=== PATIENT | female | born 1975 | race Caucasian/White ===

== ENCOUNTER 2019-11-06 09:29 | Emergency (ER) | payer OTHER, SELFPAY ==
[2019-11-06] VITALS (28 sets, daily range): BP systolic 104–146; BP diastolic 67–84; PULSE 56–61; RESP 16–18; TEMP 36.5; O2SAT 100; BMI 21.6
--- NOTE | 2019-11-06 10:18 | ED_ITS ---
Entered by Zahira King, acting as scribe for Nov 06, 2019 09:29 HPI - Abdominal Pain General: Chief Complaint: Abdominal Pain Stated Complaint: ABD Pain Time Seen by Provider: 11/06/19 10:28 Source: patient and family Mode of arrival: ambulatory Limitations: no limitations History of Present Illness: HPI narrative: 44 yo female presents with abdomen pain in LLQ. pt states this started this morning while sitting at work. Pt states she has had nausea. pt states the pain radiates to her L flank. pt has a HX of cysts. Pt states nothing relieves the pain and movement makes this worse. pt denies any other symptoms at this time. MD elicited complaint: abdominal pain (L sided) Pertinent past history: other (ovarian cyst) Onset (ago): hour(s) (today) Location: LLQ Severity: mild Quality: sharp Radiation: L flank Exacerbating factors: movement Relieving factors: nothing Associated Symptoms: Reports GI cramping; Denies chills, coffee ground emesis, constipation, diarrhea, dysuria, fever(s), heartburn, hematochezia, hematuria, hematemesis, melena and syncope Review of Systems Const: Denies: fever, chills, body aches, fatigue, malaise or night sweats Eyes: Denies: change in vision or blurry vision ENMT: Denies: throat pain, oral sores/lesions, dental pain, nasal discharge or nasal congestion Card: Denies: chest pain, palpitations, irregular heart rhythm, edema, syncope, shortness of breath on exertion, shortness of breath when lying down or leg pain with exertion Resp: Denies: shortness of breath, productive cough, non-productive cough or wheezing GI: Reports: cramping; Denies: vomiting blood, coffee grounds in vomit, difficulty swallowing, heartburn/indigestion, diarrhea, constipation, blood in stool or black tarry stool : Reports: flank pain; Denies: painful urination, urinary frequency, urinary urgency, urinary incontinence or blood in urine Musc: Denies: neck pain, back pain, extremity pain, extremity swelling, joint pain or joint swelling Skin/Breast: Denies: rash, itching or redness Neuro: Denies: headache, numbness in extremities, weakness in extremities, changes in sensation, lack of coordination, difficulty walking, frequent falls, dizziness, vertigo or confusion Psych: Denies: anxiety, depression, loss of interest, visual hallucinations, auditory hallucinations, suicidal ideation or homicidal ideation Endo: Denies: excessive urination, excessive thirst, tired all the time or cold intolerance Domenic/Lymph: Denies: easy bruising, easy bleeding, petechiae, enlarged lymph nodes or tender lymph nodes PFSH ED PFSH: Statuses (acute, chronic, etc) shown below reflect problem list status as previously entered and may not be historically accurate Medical History History of chronic hypertension (Acute) History of colitis (Acute) History of migraine (Acute) Surgical History History of colonoscopy (Acute) History of hysterectomy (Acute) Social History Smoking and tobacco status: never smoked Physical Exam Const: COMMON NORMALS: average body habitus, oriented x3 and alert GENERAL APPEARANCE: cooperative, comfortable, well kempt and well developed NUTRITIONAL APPEARANCE: obese ORIENTATION/CONSCIOUSNESS: Yes awake, Yes oriented to person and Yes oriented to place HENMT: COMMON NORMALS: normocephalic, head/scalp atraumatic, EAC's normal, TM's normal bilaterally, external nose normal, moist oral mucous membranes and oropharynx normal HEAD & SCALP: normocephalic and atraumatic NOSE: external nose normal EXTERNAL AUDITORY CANAL: EAC's normal TYMPANIC MEMBRANE: TM's normal bilaterally MOUTH: oral and palatal mucosa normal, lip normal and tongue normal THROAT: posterior oropharynx normal and tonsils normal Eye: COMMON NORMALS: PERRL, EOMs intact bilaterally, conjunctivae normal and no scleral icterus CONJUNCTIVA: Yes conjunctivae normal PUPIL: Yes PERRL Neck/C-Spine: COMMON NORMALS: full ROM, no lymphadenopathy, supple, no meningeal signs and thyroid normal THYROID: thyroid normal and asymmetrical Lymph: LYMPHATIC: no lymphadenopathy noted Resp: COMMON NORMALS: normal respiratory effort, no retractions, no use of accessory muscles and clear to auscultation bilaterally AUSCULTATION: clear to auscultation bilaterally Cardio: COMMON NORMALS: regular rate and regular rhythm RATE: regular rate RHYTHM: regular rhythm HEART SOUNDS: no murmurs GI: COMMON NORMALS: soft to palpation and no hepatosplenomegaly PALPATION: Yes soft and Yes no hepatosplenomegaly : COMMON NORMALS: Yes no CVA tenderness BLADDER/KIDNEY EXAM: Yes no CVA tenderness Back/Pelvis: COMMON NORMALS: no CVA tenderness LUMBAR SPINE/LOWER BACK: Yes normal to inspection Extremity: COMMON NORMALS: no clubbing, cyanosis or edema, no calf tenderness and no pedal edema Neuro: COMMON NORMALS: oriented x3 SENSORIUM/ORIENTATION: Yes alert, Yes oriented to person and Yes oriented to place MENINGEAL SIGNS: Yes no meningeal signs Psych: APPEARANCE: Yes well kempt Skin: COMMON NORMALS: no rashes or lesions noted and skin turgor normal GENERAL SKIN EXAM: no rashes or lesions noted and turgor normal Course ED course: Symptoms resolved at this point. We will discharge her home with hydrocodone and diclofenac if persists can use those if worsens return her exam once work-up is completed was totally benign. Have her follow-up with her primary care doctor she should get a repeat ultrasound in a few weeks. I suspect she may have had a little bit of fluid from the cyst on the ovary leak out there is not enough to see on the ultrasound I think there may have been a small leak which probably precipitated some of her pain and now it is completely resolved. Vital Signs: Vital signs: Vital Signs Temperature 97.7 F 11/06/19 09:31 Pulse Rate 61 11/06/19 13:53 Respiratory Rate 16 11/06/19 13:53 Blood Pressure 104/69 11/06/19 13:53 Pulse Oximetry 100 11/06/19 13:53 MDM - Abdominal Pain Lab Data: Labs: Lab Results 11/06/19 11/06/19 11/06/19 Range/Units 09:51 11:07 11:07 WBC 9.4 (4.0-10.0) 10^3/ uL RBC 4.77 (4.1-5.3) 10^6/u L Hgb 14.3 (11.5-15.3) g/dL Hct 43.1 (37.0-47.0) % MCV 90.4 (81-99) fL MCH 30.0 (28.0-34.0) pg MCHC 33.2 (30.0-36.0) g/dL RDW 12.0 L (12.1-15.1) % Plt Count 314 (130-400) 10^3/c mm MPV 10.2 (7.4-10.4) fL Neut % (Auto) 68.7 % Lymph % (Auto) 25.0 % [place] % (Auto) 4.9 % Eos % (Auto) 0.7 % Baso % (Auto) 0.5 % Neut # (Auto) 6.4 (1.8-7.7) 10^3/u L Lymph # (Auto) 2.3 (0.8-4.8) 10^3/u L [place] # (Auto) 0.5 (0.2-0.9) 10^3/u L Eos # (Auto) 0.1 (0.0-0.8) 10^3/u L Baso # (Auto) 0.1 (0.0-0.1) 10^3/u L Nucleated RBC % (a uto) 0 % Nucleated RBCs # 0.0 /100WBC Sodium 136 (136-145) mmol/L Potassium 4.2 (3.5-5.1) mmol/L Chloride 102 (98-107) mmol/L Carbon Dioxide 22 (22-29) mmol/L Anion Gap 16.2 (5-19) BUN 10 (6-20) mg/dL Creatinine 0.8 (0.5-0.9) mg/dL GFR Calculation 78.3 L (90-130) mL/min Glucose 103 (74-109) mg/dL Calcium 9.9 (8.6-10.0) mg/Dl Total Bilirubin 0.3 (0.15-1.2) mg/dL AST 21 (0-32) U/L ALT 19 (0-33) U/L Alkaline Phosphata se 58 (35-105) IU/L Total Protein 7.9 (6.6-8.7) g/dL Albumin 4.8 (3.5-5.2) g/dL Globulin 3.1 (1.3-4.6) g/dL Urine Color Yellow (Yellow) Urine Appearance Sl hazy (CLEAR) Urine pH 7 (5-7) Ur Specific Gravit y 1.000 L (1.005-1.030) Urine Protein Neg (Negative) Urine Glucose (UA) Norm (Normal) Urine Ketones Negative (Negative) Urine Occult Blood Neg (Negative) Urine Nitrate Negative (Negative) Urine Bilirubin Neg (NEGATIVE) Urine Urobilinogen Norm (Negative) mg/dL Ur Leukocyte Jonelle ase Negative (Negative) Urine RBC Rare (0-2) /hpf Urine WBC 0-4 H (0-5) /hpf Ur Squamous Epith Cells 5-10 H (0-5) Urine Bacteria 1+ H (NONE) Imaging Data ^: US: Radiologist's impression: [address] [address] Ultrasound Report Signed Patient: Tatyana Bynum #: [id number] : 1975Acct#:[id number] Age/Sex: 44 / FADM Date: 11/06/19 Loc: ERRoom/Bed: Attending Dr: Ordering Provider/Ordering MD: Tyler Lynn DO Date of Service: 11/06/19 Procedure(s): US pelvic complete* 61524 Accession Number(s): [id number] Report Number: [id number] WS: [id number] Pelvic ultrasound, 11/06/2019 Clinical Data: pain Comparison: None. Findings: The uterus is absent. The left ovary measures 1.56 cm x 1.57 cm x 1.79 cm with no cysts or masses. The right ovary measures 1.78 cm x 1.99 cm x 3.56 cm with a small simple cyst measuring 0.96 x 1.05 x 1.12 cm. There is no fluid in the cul-de-sac. US/US pelvic complete* 13693 Impression: 1. Hysterectomy. 2. Small right ovarian cyst. Dictated By:Geovanna Mueller MD Signed By:Geovanna Mueller MDSigned Date/Time:11/06/19 1302 DD/ 1258 Discharge Plan Discharge Patient Disposition: Home, Self-Care Clinical Impression: Ovarian cyst Qualifiers: Laterality: right Qualified Code(s): N83.201 - Unspecified ovarian cyst, right side Condition: Stable Prescriptions: New hydrocodone-acetaminophen 5-325 mg tablet 1 tab PO Q6H PRN (Reason: pain) Qty: 14 RF: 0 diclofenac sodium 75 mg tablet,delayed release (DR/EC) 75 mg PO BID PRN (Reason: pain) Qty: 30 RF: 0 No Action Multiple Vitamins Tablet 1 tab PO DAILY RF: 0 Vitamin C 1,000 mg Tablet 1,000 mg PO EVERY OTHER DAY RF: 0 sumatriptan succinate 100 mg tablet 100 mg PO PRN RF: 0 sertraline 100 mg tablet 100 mg PO DAILY RF: 0 propranolol 40 mg tablet 40 mg PO DAILY RF: 0 topiramate 50 mg tablet 50 mg PO BID RF: 0 hydrochlorothiazide 12.5 mg tablet 12.5 mg PO DAILY RF: 0 Fish Oil 1,000 mg (120 mg-180 mg) Capsule 1 cap PO DAILY RF: 0 potassium chloride 20 mEq tablet extended release 20 meq PO BID RF: 0 Discharge Orders: Discharge Order (Routine); Ordered 11/06/19 Ordered By: Tyler Lynn Referrals: Kim Berumen DO [Family Provider] - Geoffrey Gonzalez FNP [Primary Care Provider] - Discharge Diet: Usual diet Discharge Activity: Increase activity as tolerated Discharge Date/Time: 11/06/19 13:54 Coding Level of Care Code ED Grain Shoveler for Chg Fwd Exam Problem Focused The documentation recorded by the Fernando pierce Bridget Annette, accurately reflects the service I personally performed and the decisions made by Shane pagan Curtis L, DO Nov 06, 2019 09:29
[2019-11-06 10:26] LABS: Add Urine Microscopic? YES; Bilirubin Urine Neg (NEGATIVE); Blood Urine Neg (Negative); Glucose Urine UA Norm (Normal); Ketones Urine Negative (Negative); Leukocyte Esterase Urine Negative (Negative); Nitrate Urine Negative (Negative); Protein Urine Neg (Negative); Urine Appearance SL Hazy (CLEAR); Urine Color Yellow (Yellow); Urobilinogen Urine Norm (Negative); pH Urine 7 (5-7)
[2019-11-06 10:27] LABS: Bacteria Urine 1+; RBC Urine RARE /hpf (0-2); WBC Urine 0-4 /hpf (0-5)
[2019-11-06 10:28] LABS: Add Urine Culture? No
--- NOTE | 2019-11-06 10:58 | US_ITS ---
WS: [id number] Pelvic ultrasound, 11/06/2019 Clinical Data: pain Comparison: None. Findings: The uterus is absent. The left ovary measures 1.56 cm x 1.57 cm x 1.79 cm with no cysts or masses. The right ovary measures 1.78 cm x 1.99 cm x 3.56 cm with a small simple cyst measuring 0.96 x 1.05 x 1.12 cm. There is no fluid in the cul-de-sac. US/US pelvic complete* 80830 Impression: 1. Hysterectomy. 2. Small right ovarian cyst.
[2019-11-06] MEDS: sodium chloride 0.9% 1,000 ML 999 ML IV (11:10)
[2019-11-06 11:14] LABS: Basophils # 0.1 10^3/uL (0.0-0.1); Basophils % 0.5 %; Eosinophils # 0.1 10^3/uL (0.0-0.8); Eosinophils % 0.7 %; Hematocrit 43.1 % (37.0-47.0); Hemoglobin 14.3 g/dL (11.5-15.3); Lymphocytes # 2.3 10^3/uL (0.8-4.8); Mean Corpuscular HGB Conc 33.2 g/dL (30.0-36.0); Mean Corpuscular Volume 90.4 fL (81-99); Mean Platelet Volume 10.2 fL (7.4-10.4); Monocytes # 0.5 10^3/uL (0.2-0.9); Monocytes % 4.9 %; Neutrophils # 6.4 10^3/uL (1.8-7.7); Neutrophils % 68.7 %; Nucleated Red Blood Cells % 0 %; Platelet Count 314 10^3/cmm (130-400); Red Blood Count 4.77 10^6/uL (4.1-5.3); White Blood Count 9.4 10^3/uL (4.0-10.0)
[2019-11-06 11:35] LABS: Alanine Aminotransferase 19 U/L (0-33); Albumin Level 4.8 g/dL (3.5-5.2); Alkaline Phosphatase 58 IU/L (35-105); Anion Gap 16.2 (5-19); Aspartate Amino Transferase 21 U/L (0-32); Blood Urea Nitrogen 10 mg/dL (6-20); Calcium 9.9 mg/Dl (8.6-10.0); Carbon Dioxide 22 mmol/L (22-29); Chloride 102 mmol/L (98-107); Globulin 3.1 g/dL (1.3-4.6); Glomerular Filtration Rate 78.3 mL/min (90-130); Glucose 103 mg/dL (74-109); Potassium 4.2 mmol/L (3.5-5.1); Sodium 136 mmol/L (136-145); Total Bilirubin 0.3 mg/dL (0.15-1.2); Total Protein 7.9 g/dL (6.6-8.7)
--- NOTE | 2019-11-06 11:58 | PC.NURSE ---
US at bedside 1100
== END 2019-11-06 13:54 | disposition home or self-care (01) ==
PROVIDERS: Emergency Provider Family Medicine; Family Provider Family Medicine; PCP Registered Nurse
DX: N83.201 Unspecified ovarian cyst, right side (principal); I10 Essential (primary) hypertension
CPT/HCPCS: 36415; 76856; 80053; 81003; 85025; 96360; 99283; A9270; J7030

== ENCOUNTER → 2020-04-17 09:26 | Outpatient (BNVA) | payer OTHER, SELFPAY | PROVIDERS: Family Provider Family Medicine; PCP Registered Nurse; Visit Provider Family Medicine | DX: Z86.79 Personal history of other diseases of the circulatory system (principal) | CPT/HCPCS: 80053; 82044 ==

== ENCOUNTER → 2020-04-23 13:55 | Outpatient (BNVA) | payer OTHER, SELFPAY | PROVIDERS: Family Provider Family Medicine; PCP Registered Nurse; Visit Provider Family Medicine | DX: R73.09 Other abnormal glucose (principal) | CPT/HCPCS: 83036 ==

== ENCOUNTER 2020-05-28 10:15 | Outpatient (CLI) | payer OTHER, SELFPAY ==
--- NOTE | 2020-05-28 10:15 | US_ITS ---
WS: [id number] TRANSABDOMINAL PELVIC AND TRANSVAGINAL PELVIC ULTRASOUND HISTORY: LEFT lower quadrant pain. COMPARISON: 11/06/2019 Prior hysterectomy. No midline mass. Right ovary: 2.6 cm x 2.1 cm x 1.4 cm. Small follicles in the RIGHT ovary. Small corpus luteum cyst i n the RIGHT ovary. No solid or cystic mass. Normal vascularity. Left ovary: 2.2 cm x 1.8 cm x 1.7 cm. Small follicles in the LEFT ovary. No solid or cystic masses. N ormal vascularity. No free fluid. US/US pelvic with transvaginal IMPRESSION: 1. No solid or cystic masses within either ovary. 2. Prior hysterectomy.
== END 2020-05-28 10:16 | disposition home or self-care (01) ==
PROVIDERS: PCP Registered Nurse; Visit Provider Family Medicine
DX: R10.32 Left lower quadrant pain (principal)
CPT/HCPCS: 76830; 76856

== ENCOUNTER 2020-05-31 08:12 | Outpatient (CLI) | payer OTHER, SELFPAY ==
--- NOTE | 2020-05-31 08:30 | MM_ITS ---
WS: [id number] BILATERAL DIGITAL SCREENING MAMMOGRAM WITH CAD CLINICAL INFORMATION: screening mammogram HISTORY: Screening mammogram. No current complaints. COMPARISON: TECHNIQUE: Bilateral CC and MLO. FINDINGS: The breast are composed of extremely dense tissue, which can limit the detection of small underlying mass lesions. No suspicious focal mass, asymmetry, calcifications, or architectural distortion. No ev idence of malignancy. A few punctate calcifications. MM/[place] [id number] IMPRESSION: BI-RADS: 2-Benign FOLLOW UP: 1 Year Follow-up Recommend return to annual screening mammography.
== END 2020-05-31 08:13 | disposition home or self-care (01) ==
LOC: RADSHAW 08:15
PROVIDERS: PCP Family Medicine; Visit Provider Family Medicine
DX: Z12.31 Encounter for screening mammogram for malignant neoplasm of breast (principal)
CPT/HCPCS: 77067

== ENCOUNTER → 2020-08-21 12:23 | Outpatient (BNVA) | payer OTHER, SELFPAY | PROVIDERS: PCP Family Medicine; Visit Provider Nurse Practitioner Family | DX: Z11.59 Encounter for screening for other viral diseases (principal); Z20.828 Contact with and (suspected) exposure to other viral communicable diseases; J06.9 Acute upper respiratory infection, unspecified | CPT/HCPCS: 87635 ==

== ENCOUNTER 2020-11-15 11:04 | Emergency (ER) | payer OTHER, SELFPAY ==
[2020-11-15 11:15] VITALS: BP 159/95; PULSE 60; RESP 16; TEMP 37.1; O2SAT 100; BMI 21.8
--- NOTE | 2020-11-15 11:18 | W.ED.CHESTPA ---
HPI - Chest Pain General: Chief Complaint: Chest Pain Stated Complaint: WORSENING CP, ABNORMAL EKG Time Seen by Provider: 11/15/20 11:15 History of Present Illness: HPI narrative: 45-year-old female presents emergency room with complaint of chest pain. She had similar episode a week ago with episode of chest pain she was seen in the emergency room had normal troponins and EKGs and ultimately was sent home. She said there is some nonspecific ST abnormalities on the EKG but they did not hospitalize her. She is never previously had a heart condition of any kind. She does not smoke she does have a history of hypertension. She currently is on propranolol and hydrochlorothiazide. Few months ago she was started on Aimovig for migraines. She has not noticed any precipitating or relieving events. Pain is epigastric radiating up into the lower sternal area and a little bit to the left it does not have any radiation to the neck or arm no associated diaphoresis or shortness of breath. MD complaint: chest pain Onset (ago): week(s) Timing of current episode: episodic Prior episodes: Yes Onset: during rest and after eating Pain location: substernal and left chest Pain radiation: none Severity: moderate Quality: tightness and aching Relieving factors: nothing Exacerbating factors: nothing Associated symptoms: Reports sense of impending doom; Deny abdominal pain, diaphoresis, dyspnea, fever(s), leg edema, nausea, palpitations, syncope or vomiting Treatment prior to arrival: none Review of Systems Const: Denies: fever(s) or diaphoresis ENMT: Denies: throat pain, ear or mastoid pain, nasal discharge or nasal congestion Card: Denies: palpitations or syncope Resp: Denies: dyspnea GI: Denies: abdominal pain, nausea or vomiting : Denies: flank pain, difficulty voiding, dysuria, urinary frequency or urinary urgency Skin/Breast: Denies: rash or pruritus PFSH ED PFSH: Medical History JOEY (generalized anxiety disorder) History of chronic hypertension History of colitis History of migraine Surgical History History of colonoscopy History of hysterectomy Family History Other Cancer Hyperlipidemia Social History Smoking and tobacco status: never smoked Physical Exam Const: COMMON NORMALS: no acute distress GENERAL APPEARANCE: cooperative and comfortable ORIENTATION/CONSCIOUSNESS: Yes awake, Yes oriented to person, Yes oriented to place and Yes oriented to time HENMT: COMMON NORMALS: normocephalic, atraumatic and hearing grossly normal bilaterally HEAD & SCALP: normocephalic and atraumatic Neck/C-Spine: COMMON NORMALS: no JVD Resp: COMMON NORMALS: normal respiratory effort, No retractions, No use of accessory muscles and clear to auscultation bilaterally AUSCULTATION: clear to auscultation bilaterally Cardio: COMMON NORMALS: no JVD, regular rate, regular rhythm and No murmurs present (Cardio) RATE: regular rate RHYTHM: regular rhythm GI: COMMON NORMALS: Soft to palpation and No hepatosplenomegaly present AUSCULTATION: Yes normoactive bowel sounds PALPATION: Yes Soft to palpation, No Tenderness to palpation present (GI), No Guarding due to palpation present (GI) and Yes No hepatosplenomegaly present Extremity: COMMON NORMALS: normal to inspection, capillary refill normal, no clubbing, cyanosis or edema, no calf tenderness and no pedal edema Neuro: SENSORIUM/ORIENTATION: Yes oriented to person, Yes oriented to place and Yes oriented to time Skin: COMMON NORMALS: no rashes or lesions noted GENERAL SKIN EXAM: no rashes or lesions noted Course Vital Signs: Vital signs: Vital Signs Temperature 98.8 F 11/15/20 11:15 Pulse Rate 66 11/15/20 15:11 Respiratory Rate 16 11/15/20 15:11 Blood Pressure 111/70 11/15/20 15:11 Pulse Oximetry 99 11/15/20 15:11 MDM - Chest Pain MDM Narrative: Medical decision making narrative: Chest pain is resolved. Interestingly it is brought on specifically she states by eating with palpation I cannot reproduce it. Her EKG and her troponins are normal we even did to troponin despite the fact she started have this pain for over a week. We will go ahead and discharge her home we will make arrangements for an outpatient sestamibi stress test started on a PPI return if has further problems reviewed findings with her. Lab Data: Labs: Lab Results 11/15/20 11/15/20 11/15/20 Range/Units 12:00 12:00 12:00 WBC 7.0 (4.0-10.0) 10^3/ uL RBC 4.66 (4.1-5.3) 10^6/u L Hgb 14.2 (11.5-15.3) g/dL Hct 42.6 (37.0-47.0) % MCV 91.4 (81-99) fL MCH 30.5 (28.0-34.0) pg MCHC 33.3 (30.0-36.0) g/dL RDW 11.9 L (12.1-15.1) % Plt Count 315 (130-400) 10^3/c mm MPV 10.6 H (7.4-10.4) fL Neut % (Auto) 60.6 % Lymph % (Auto) 31.9 % [place] % (Auto) 5.1 % Eos % (Auto) 1.4 % Baso % (Auto) 0.7 % Neut # (Auto) 4.24 (1.8-7.7) 10^3/u L Lymph # (Auto) 2.2 (0.8-4.8) 10^3/u L [place] # (Auto) 0.4 (0.2-0.9) 10^3/u L Eos # (Auto) 0.1 (0.0-0.8) 10^3/u L Baso # (Auto) 0.1 (0.0-0.1) 10^3/u L Nucleated RBC % (a uto) 0 % Nucleated RBCs # 0.0 /100WBC Sodium 139 (136-145) mmol/L Potassium 3.8 (3.5-5.1) mmol/L Chloride 104 (98-107) mmol/L Carbon Dioxide 23 (22-29) mmol/L Anion Gap 15.8 (5-19) BUN 9 (6-20) mg/dL Creatinine 0.8 (0.5-0.9) mg/dL GFR Calculation 77.9 L (90-130) mL/min Glucose 114 (65-115) mg/dL Calculated Osmolal ity 288 (285-295) mOsm/k g Calcium 9.2 (8.5-10.5) mg/dL Total Bilirubin 0.4 (0.15-1.2) mg/dL AST 12 (0-32) U/L ALT 11 (0-33) U/L Alkaline Phosphata se 53 (35-105) IU/L Troponin T Baselin e 6 (0-10) ng/L Troponin T 120 Min [place] (0-10) ng/L Delta Troponin T (0-10) ABS# Total Protein 7.1 (6.6-8.7) g/dL Albumin 4.1 (3.5-5.2) g/dL Globulin 3.0 (1.3-4.6) g/dL Urine Color (Yellow) Urine Appearance (CLEAR) Urine pH (5-7) Ur Specific Gravit y (1.005-1.030) Urine Protein (Negative) Urine Glucose (UA) (Normal) Urine Ketones (Negative) Urine Blood (Negative) Urine Nitrate (Negative) Urine Bilirubin (Negative) Urine Urobilinogen (Negative) mg/dL Ur Leukocyte Jonelle ase (Negative) 11/15/20 11/15/20 Range/Units 12:54 13:53 WBC (4.0-10.0) 10^3/ uL RBC (4.1-5.3) 10^6/u L Hgb (11.5-15.3) g/dL Hct (37.0-47.0) % MCV (81-99) fL MCH (28.0-34.0) pg MCHC (30.0-36.0) g/dL RDW (12.1-15.1) % Plt Count (130-400) 10^3/c mm MPV (7.4-10.4) fL Neut % (Auto) % Lymph % (Auto) % [place] % (Auto) % Eos % (Auto) % Baso % (Auto) % Neut # (Auto) (1.8-7.7) 10^3/u L Lymph # (Auto) (0.8-4.8) 10^3/u L [place] # (Auto) (0.2-0.9) 10^3/u L Eos # (Auto) (0.0-0.8) 10^3/u L Baso # (Auto) (0.0-0.1) 10^3/u L Nucleated RBC % (a uto) % Nucleated RBCs # /100WBC Sodium (136-145) mmol/L Potassium (3.5-5.1) mmol/L Chloride (98-107) mmol/L Carbon Dioxide (22-29) mmol/L Anion Gap (5-19) BUN (6-20) mg/dL Creatinine (0.5-0.9) mg/dL GFR Calculation (90-130) mL/min Glucose (65-115) mg/dL Calculated Osmolal ity (285-295) mOsm/k g Calcium (8.5-10.5) mg/dL Total Bilirubin (0.15-1.2) mg/dL AST (0-32) U/L ALT (0-33) U/L Alkaline Phosphata se (35-105) IU/L Troponin T Baselin e (0-10) ng/L Troponin T 120 Min [place] 6.00 (0-10) ng/L Delta Troponin T 0 (0-10) ABS# Total Protein (6.6-8.7) g/dL Albumin (3.5-5.2) g/dL Globulin (1.3-4.6) g/dL Urine Color Straw (Yellow) Urine Appearance Clear (CLEAR) Urine pH 5 (5-7) Ur Specific Gravit y 1.015 (1.005-1.030) Urine Protein Neg (Negative) Urine Glucose (UA) Norm (Normal) Urine Ketones Negative (Negative) Urine Blood Neg (Negative) Urine Nitrate Negative (Negative) Urine Bilirubin Neg (Negative) Urine Urobilinogen Norm (Negative) mg/dL Ur Leukocyte Jonelle ase Negative (Negative) Discharge Plan Discharge Patient Disposition: Home Clinical Impression: Atypical chest pain Condition: Stable Prescriptions: New Prilosec OTC 20 mg tablet,delayed release (DR/EC) 20 mg PO DAILY Qty: 30 RF: 0 No Action Aimovig Autoinjector 140 mg/mL Auto-Injector 140 mg SUBCUT Q30D RF: 0 Ubrelvy 100 mg Tablet 100 mg PO PRN PRN (Reason: Migraine Headache) RF: 0 sertraline 100 mg tablet 100 mg PO DAILY@06 RF: 0 propranolol 40 mg tablet 40 mg PO DAILY@06 RF: 0 topiramate 50 mg tablet 50 mg PO BID@,21 RF: 0 hydrochlorothiazide 12.5 mg tablet 12.5 mg PO DAILY@06 RF: 0 potassium chloride 20 mEq tablet extended release 20 meq PO BID@ RF: 0 multivitamin [Multiple Vitamins] Tablet 1 tab PO DAILY@2099 RF: 0 ascorbic acid (vitamin C) [Vitamin C] 1,000 mg Tablet 1,000 mg PO EVERY OTHER DAY RF: 0 omega 7-dht-ebo-fish oil [Fish Oil] 1,000 mg (120 mg-180 mg) Capsule 1 cap PO DAILY@2099 RF: 0 Discharge Orders: Discharge ED (Routine); Ordered 11/15/20 Ordered By: Tyler Lynn Referrals: Kim Berumen DO [Primary Care Provider] - Discharge Diet: Usual diet Discharge Activity: Increase activity as tolerated Activity Restrictions/Additional Instructions: His management will call to set up a sestamibi stress test Coding Level of Care Code ED Milk Driver for Palak Witt
--- NOTE | 2020-11-15 11:25 | XR_ITS ---
WS: [id number] Portable AP upright chest, 11/15/2020 Clinical Data: chest pain Comparison: None. Findings: No nodules, masses or effusions are seen. The heart is normal. The pulmonary vascularity is not increased. No pneumonia or pneumothorax is seen. Monitor leads are on the chest wall. XR/XR chest 1V portable [id number] Impression: Negative chest.
--- NOTE | 2020-11-15 11:25 | ECG_ITS ---
[facility] Test Date: 2020-11-15 Pat Name: Tatyana Bynum Department: Room: Gender: Female Software Technician: : 1975 Requested By: Tyler Lee Order Number: [id number] Laura MD: Ronnie Zaragoza M.D. Measurements Intervals [place] Rate: 61 P: 74 [place]: 146 QRS: 66 QRSD: 81 T: 17 QT: 389 QTc: 392 Interpretive Statements SINUS RHYTHM No previous ECG available for comparison Electronically Signed On 11-15-2020 19:11:49 WHARF WORKER by Ronnie Zaragoza M.D. [id number]
[2020-11-15 11:32] VITALS: O2SAT 100
[2020-11-15 12:08] VITALS: BP 145/88; PULSE 67; RESP 19; O2SAT 100
[2020-11-15 12:39] LABS: Troponin(5th) Baseline 6 ng/L (0-10)
[2020-11-15 12:58] LABS: Add Urine Microscopic? NO
[2020-11-15 13:05] LABS: Bilirubin Urine Neg (Negative); Blood Urine Neg (Negative); Glucose Urine UA Norm (Normal); Ketones Urine Negative (Negative); Leukocyte Esterase Urine Negative (Negative); Nitrate Urine Negative (Negative); Protein Urine Neg (Negative); Specific Gravity, Urine 1.015 (1.005-1.030); Urine Appearance Clear (CLEAR); Urine Color Straw (Yellow); Urobilinogen Urine Norm (Negative); pH Urine 5 (5-7)
--- NOTE | 2020-11-15 13:25 | ECG_ITS ---
[facility] Test Date: 2020-11-15 Pat Name: Tatyana Bynum Department: Room: Gender: Female Beauty Culturist Apprentice: : 1975 Requested By: Tyler Lee Order Number: [id number] Laura MD: Ronnie Zaragoza M.D. Measurements Intervals [place] Rate: 60 P: 73 [place]: 141 QRS: 60 QRSD: 84 T: 13 QT: 390 QTc: 390 Interpretive Statements SINUS RHYTHM No previous ECG available for comparison Electronically Signed On 11-15-2020 19:17:31 OPTOMETRIST PRESIDENT/PRACTICE OWNER by Ronnie Zaragoza M.D. [id number]
[2020-11-15 13:36] LABS: Basophils # 0.1 10^3/uL (0.0-0.1); Basophils % 0.7 %; Eosinophils # 0.1 10^3/uL (0.0-0.8); Eosinophils % 1.4 %; Hematocrit 42.6 % (37.0-47.0); Hemoglobin 14.2 g/dL (11.5-15.3); Lymphocytes # 2.2 10^3/uL (0.8-4.8); Lymphocytes % 31.9 %; Mean Corpuscular HGB Conc 33.3 g/dL (30.0-36.0); Mean Corpuscular Hemoglobin 30.5 pg (28.0-34.0); Mean Corpuscular Volume 91.4 fL (81-99); Mean Platelet Volume 10.6 fL (7.4-10.4); Monocytes # 0.4 10^3/uL (0.2-0.9); Monocytes % 5.1 %; Neutrophils # 4.24 10^3/uL (1.8-7.7); Neutrophils % 60.6 %; Nucleated Red Blood Cells % 0 %; Platelet Count 315 10^3/cmm (130-400); Red Blood Count 4.66 10^6/uL (4.1-5.3); Red Cell Distribution Width 11.9 % (12.1-15.1)
[2020-11-15 13:46] LABS: Alanine Aminotransferase 11 U/L (0-33); Albumin Level 4.1 g/dL (3.5-5.2); Alkaline Phosphatase 53 IU/L (35-105); Anion Gap 15.8 (5-19); Aspartate Amino Transferase 12 U/L (0-32); Blood Urea Nitrogen 9 mg/dL (6-20); Calcium 9.2 mg/dL (8.5-10.5); Carbon Dioxide 23 mmol/L (22-29); Chloride 104 mmol/L (98-107); Glomerular Filtration Rate 77.9 mL/min (90-130); Glucose 114 mg/dL (65-115); Osmolality Calculated 288 mOsm/kg (285-295); Potassium 3.8 mmol/L (3.5-5.1); Sodium 139 mmol/L (136-145); Total Bilirubin 0.4 mg/dL (0.15-1.2); Total Protein 7.1 g/dL (6.6-8.7)
[2020-11-15 14:00] VITALS: BP 117/71; PULSE 72; RESP 18; O2SAT 100
[2020-11-15 14:19] LABS: Troponin 5 2HR Delta 0 ABS# (0-10)
[2020-11-15 15:11] VITALS: BP 111/70; PULSE 66; RESP 16; O2SAT 99
--- NOTE | 2020-11-19 10:35 | DCPLANNER ---
Addendum entered by Bella Bautista 11/27/20 15:22: manager renewable energy was told that patients insurance is requiring a peer to peer, which is something that is not done in the ED. Patient will need to see primary care physician, and if the primary care physician would like for patient to have a stress test then the primary care physician can order the stress test. manager renewable energy called patient, unable to speak with patient at this time and unable to leave a voicemail for patient due to mail box being full. Original Note: manager renewable energy had message to schedule an out patient stress test for patient. manager renewable energy faxed order to centralized scheduling, will call for appointment information.
== END 2020-11-15 15:11 | disposition home or self-care (01) ==
PROVIDERS: Emergency Provider Family Medicine; PCP Family Medicine
DX: R07.89 Other chest pain (principal); I10 Essential (primary) hypertension
CPT/HCPCS: 12345; 36415; 71045; 80053; 81003; 84484; 85025; 93005; 99283